=== PATIENT | male | born 1985 | race Caucasian/White ===

== ENCOUNTER 2024-10-29 17:04 | Inpatient (IN) | payer OTHER ==
[2024-10-29 17:46] VITALS: BMI 22.6
[2024-10-29] MEDS ORDERED: BENZONATATE 200 MG CAPSULE PO PRN (18:45)
[2024-10-29] MEDS ORDERED: MAG HYDROX/AL HYDROX/SIMETH 30 ML UNIT-DOSE CUP PO PRN (18:45)
[2024-10-29] MEDS ORDERED: guaiFENesin 600 MG TABLET.ER (FP) PO PRN (18:45)
[2024-10-29] MEDS ORDERED: ACETAMINOPHEN 325 MG TABLET (FP) PO PRN (18:45)
[2024-10-29] MEDS ORDERED: BISMUTH SUBSALICYLATE 524 MG/30 ML PO PRN (18:45)
[2024-10-29] MEDS ORDERED: BENZOCAINE/MENTHOL (CHLORASEPTIC ) LOZENGE MM PRN (18:45)
[2024-10-29] MEDS ORDERED: IBUPROFEN 400 MG TABLET (FP) PO PRN (18:45)
[2024-10-29] MEDS ORDERED: POLYETHYLENE GLYCOL (HEALTHYLAX) 3350 17 GM PACKET PO PRN (18:45)
[2024-10-29] MEDS ORDERED: NALOXONE (NARCAN) HCL 4 MG/0.1 ML SPRAY NS PRN (18:45)
[2024-10-29] MEDS ORDERED: ONDANSETRON *ODT* 4 MG TABLET ONE (19:21)
[2024-10-29] MEDS: ONDANSETRON *ODT* 4 MG TABLET SL PRN (19:22)
[2024-10-29] MEDS: METHOCARBAMOL 500 MG TABLET PO PRN (20:24)
[2024-10-29] MEDS: DICYCLOMINE HCL 10 MG CAPSULE PO PRN (20:24)
[2024-10-29] MEDS: MELATONIN 5 MG TABLETS PO SCH (22:12)
[2024-10-29] MEDS: THIAMINE 100 MG TABLET PO SCH (22:12)
[2024-10-30] MEDS: PRENATAL VITAMINS W/ FOLIC ACID TABLET (FP) PO SCH (10:09)
[2024-10-30] MEDS: hydrOXYzine PAMOATE 25 MG CAPSULE (FP) PO PRN (10:09)
[2024-10-30] MEDS: LOPERAMIDE HCL 2 MG CAPSULE PO PRN (10:12)
[2024-10-30 15:00] LABS: MCHC 33.7 g/dl (32.3-36.5); MEAN CELL VOLUME 98.3 fl (79.0-92.2); MEAN PLT VOLUME 12.6 fl (9.4-12.4); RDW 13.6 % (12.0-15.6)
[2024-10-30 15:03] LABS: CO2 32 mmol/L (21-32); GLUCOSE,RANDOM 127 mg/dL (74-106)
[2024-10-30 15:06] LABS: CREATININE 0.7 mg/dL (0.55-1.3); SGOT/AST 407 U/L (15-37); SGPT/ALT 284 U/L (13-61)
[2024-10-30 15:07] LABS: TOT PROT 7.0 g/dl (6.4-8.2)
[2024-10-30 15:09] LABS: ALK PHOS 119 U/L (45-117)
[2024-10-30] MEDS ORDERED: CLOBETASOL PROPIONATE 15 GM CREAM TP PRN (18:30)
[2024-10-31] MEDS: CLOBETASOL PROPIONATE 15 GM OINTMENT TP PRN (00:25)
[2024-10-31] MEDS: IBUPROFEN 600 MG TABLET (FP) PO PRN (10:26)
[2024-10-31] MEDS: HYDROCORTISONE 1% TOPICAL OINT 30 GM TUBE TP SCH (11:05)
[2024-10-31] MEDS: MINERAL OIL/PET HY-PHL TOPICAL OINTMENT 454 GM JAR TP SCH (12:00)
[2024-10-31 15:27] LABS: CO2 32.0 mmol/L (21-32); GLUCOSE,RANDOM 136.0 mg/dL (74-106)
[2024-10-31 15:29] LABS: SGPT/ALT 277.0 U/L (13-61)
[2024-10-31 15:30] LABS: CREATININE 0.8 mg/dL (0.55-1.3); SGOT/AST 365.0 U/L (15-37)
[2024-10-31 15:31] LABS: TOT PROT 7.2 g/dl (6.4-8.2)
[2024-10-31 15:32] LABS: ALK PHOS 111.0 U/L (45-117)
[2024-10-31] MEDS: MELATONIN 5 MG TABLETS PO SCH (22:06)
[2024-10-31] MEDS: PETROLATUM,WHITE OINTMENT 3.5 OZ JAR TP SCH (22:09)
[2024-11-01] MEDS: POTASSIUM CHLORIDE ORAL LIQUID 20 MEQ/15 ML PO ONE (13:40)
[2024-11-02 11:45] LABS: IMMATURE PLATELET FRACTION # 12.50 x10^3/uL; MCHC 33.6 g/dl (32.3-36.5); MEAN CELL VOLUME 98.4 fl (79.0-92.2); MEAN PLT VOLUME 11.4 fl (9.4-12.4); RDW 13.2 % (12.0-15.6)
[2024-11-02 12:03] LABS: CO2 32.0 mmol/L (21-32); GLUCOSE,RANDOM 107.0 mg/dL (74-106)
[2024-11-02 12:06] LABS: CREATININE 0.6 mg/dL (0.55-1.3); SGOT/AST 468.0 U/L (15-37); SGPT/ALT 398.0 U/L (13-61)
[2024-11-02 12:08] LABS: TOT PROT 6.4 g/dl (6.4-8.2)
[2024-11-02 12:09] LABS: ALK PHOS 90.0 U/L (45-117)
[2024-11-02] MEDS: MAGNESIUM HYDROX 2400MG/30ML ORAL SUSPENSION 30 ML CUP PO PRN (17:25)
[2024-11-02] MEDS: METHOCARBAMOL 500 MG TABLET PO PRN (17:26)
[2024-11-02 21:10] VITALS: RESP 16
[2024-11-02] MEDS: SUVOREXANT 10 MG TABLET PO PRN (22:07)
[2024-11-03 08:54] VITALS: BP 118/84; PULSE 72; TEMP 98.2
== END 2024-11-03 10:36 | disposition home or self-care (01) | DRG 774 ==
LOC: YASAS 17:04 → Y6N 19:56
PROVIDERS: ADMIT Neuromusculoskeletal Medicine & OMM; ATTEND Allergy & Immunology
PROC: HZ2ZZZZ Detoxification Services for Substance Abuse Treatment (ICD-10-PCS; principal; 2024-10-29)
DX: F10.230 Alcohol dependence with withdrawal, uncomplicated (principal); F12.20 Cannabis dependence, uncomplicated; F14.20 Cocaine dependence, uncomplicated; K29.20 Alcoholic gastritis without bleeding; K76.0 Fatty (change of) liver, not elsewhere classified; L40.9 Psoriasis, unspecified; Z59.00 Homelessness unspecified; G47.00 Insomnia, unspecified
CPT/HCPCS: 36415; 80053; 80305; 80307; 85027; 86780; 93005; 93010; Q0162